=== PATIENT | male | born 1995 ===

== ENCOUNTER 2022-07-30 11:29 | Emergency (ER) | payer SELFPAY ==
--- NOTE | 2022-07-30 11:35 | PC.NURSE ---
JUST AFTER EMS GOT PT OFF OF STRETCHER HE ASKED ABOUT HIS GIRLFRIEND. EMS STATED THAT THEY THINK SHE WENT TO ANOTHER HOSPITAL. HE THEN DECIDED THAT HE DIDN'T WANT TO BE SEEN IN THE ED. PT ADVISED AGAINST DECLINING CARE BUT PT WAS ADAMANT HE WANTS TO GO TO BE WITH HIS GIRLFRIEND. THE C-COLLAR AND THE IV FROM EMS WAS REMOVED BY EMS PERSONNEL. PT AMBULATORY WITH A SLOW BUT STEADY GAIT. PT CURRENTLY ON WAITING ROOM PHONE CALLING FAMILY TO CHECK ON GIRLFRIEND.
== END 2022-07-30 11:35 | disposition left against medical advice (07) ==
DX: Z53.21 Procedure and treatment not carried out due to patient leaving prior to being seen by health care provider (principal)
CPT/HCPCS: 99199